=== PATIENT | female | born 1965 | race Two or more races ===

== ENCOUNTER 2024-04-28 16:13 | Emergency (ER) | payer BC, SELFPAY ==
[2024-04-28 16:15] VITALS: PULSE 101; RESP 20; O2SAT 99
[2024-04-28 16:29] VITALS: BP 127/79; PULSE 96; RESP 20; TEMP 37.2; O2SAT 95; BMI 36.7
--- NOTE | 2024-04-28 16:34 | XR_ITS ---
Examination: PA lateral chest 2 views TECHNIQUE: Upright PA lateral chest 2 views Exam date and time: April 28, 2024 1647 hours INDICATIONS: Coughing shortness of breath weakness chest pain beginning April 02, 2024 FINDINGS: Suspicious for early bilateral perihilar basilar pneumonia Normal heart size The osseous structures are intact IMPRESSION: Suspicious for early bilateral perihilar bibasilar pneumonia, recommend short-term follow-up chest imaging
--- NOTE | 2024-04-28 16:34 | PD.EDSOB ---
ED SOB =RME/HPI General Chief Complaint: Shortness of Breath/Dyspnea Stated Complaint: SOB, COUGH, WEAKNESS, CHEST PAIN Time Seen by Provider: 04/28/24 16:29 Arrival date/time: 04/28/24 16:13 58-year-old female who states she has had a respiratory virus for the past 3 weeks has tested negative for COVID and flu reports with complaints of a cough attack that resulted in shortness of breath. Patient states that she is feeling much better the shortness of breath has resolved but she cannot control the coughing. She reports taking [id number] medications with no improvement of symptoms. She denies fever chills chest pain back pain nausea vomiting abdominal pain weakness or fatigue Limitations: no limitations Related Data Previous Rx's ?Medication ?Instructions ?Recorded promethazine 6.25 mg-codeine 10 5 ml PO Q6H PRN cough #118 mL 04/28/24 mg/5 mL syrup Allergies Allergy/AdvReac Type Severity Reaction Status Date / Time Penicillins Allergy Mild Hives Verified 04/28/24 16:19 cephalexin [From Keflex] Allergy Verified 04/28/24 16:19 Review of Systems Constitutional Constitutional: Denies chills and Denies fever(s) Cardiovascular Cardiovascular: Denies chest pain and Reports dyspnea Respiratory Respiratory: Reports cough and Reports dyspnea Gastrointestinal Gastrointestinal: Denies nausea and Denies vomiting Musculoskeletal Musculoskeletal: Denies arthralgias and Denies back pain ED Exam General Limitations: Present no limitations General appearance: Present alert and in no apparent distress Head Head exam: Present atraumatic Eye Eye exam: Present normal appearance, PERRL and EOMI ENT ENT exam: Present normal exam, normal oropharynx and mucous membranes moist Neck Neck exam: Present normal inspection, full ROM and trachea midline Chest Chest inspection: Present normal inspection and symmetric chest wall rise Respiratory Respiratory exam: Present other (Coarse breath sounds noted right anterior upper lung); Absent respiratory distress, wheezes, stridor, accessory muscle use or prolonged expiratory phase Cardiovascular Cardiovascular exam: Present regular rate, normal rhythm and normal heart sounds Abdominal Exam Abdominal exam: Present soft and normal bowel sounds Extremities Exam Extremities exam: Present normal inspection and full ROM Back Exam Back exam: Present normal inspection and full ROM Neurological Exam Neurological exam: Present alert, oriented X3 and CN II-XII intact Psychiatric Psychiatric exam: Present normal affect and normal mood Skin Skin exam: Present warm, dry, intact and normal color Course Course Course Narrative: 58-year-old female reports complaints of an episode of shortness of breath. Upon examination states patient states she is feeling much better lung exam with some mild coarse breath sounds noted left upper right lobe however chest x-ray is negative for infiltrates or opacities. Differential diagnosis includes upper respiratory infection versus lower respiratory infection versus flu versus COVID versus other viral infections. Patient is stable nontoxic-appearing in no respiratory distress oxygen saturations are above 95% she will be discharged home advised to follow-up with primary care provider as needed. She is also advised to return to emergency department if symptoms should worsen Quality Measures none Orders Category Date Time Status XR chest 2V Stat Exams 04/28/24 16:34 Taken Vital Signs Vital signs: Vital Signs Temperature 99.0 F 04/28/24 16:29 Pulse Rate 96 04/28/24 16:29 Respiratory Rate 20 04/28/24 16:29 Blood Pressure 127/79 04/28/24 16:29 Pulse Oximetry (%) 95 04/28/24 16:29 Oxygen Delivery Method Room Air 04/28/24 16:29 Shortness of Breath / Dyspnea Patient data External records reviewed:: None Clinical information provided by:: patient Social determinants that could affect healthcare access:: none Patient has the following chronic illnesses:: none How is presenting disease/condition affected by chronic disease/condition?: no chronic disease Evaluation data The following diagnostics were reviewed and interpreted by me:: radiology exam(s) Lab and/or radiology exams considered but not ordered:: Flu, COVID Interpretation Summary: Chest x-ray negative for infiltrates or opacities Medications / Prescriptions Medications or Prescriptions considered but not ordered:: None Medication administrations:: None Consultations Consultation(s) initiated? (list below): No Diagnosis Shortness of Breath Differential Diagnosis: other (Upper respiratory infection, lower respiratory infection, flu, COVID, RSV, sinusitis) Most likely diagnosis given after review of the tests above:: Viral upper respiratory infection Admission Indicated Admission indicated?: not indicated Admission Request Was there a request for admission?: No Disposition Plan Disposition Plan: Discharge Discharge Attestation Discharge Attestation: The patient and all family members were given an opportunity to ask questions and understood the discharge instructions. Discharge instructions specifically effects, indications for sooner follow up or return to the emergency department, and the expected course of current diagnosis. Patient condition: Stable Discharge Plan Plan Patient Disposition: HOME (Self Care) Prescriptions/Referrals Prescriptions/Med Rec: New promethazine-codeine 6.25-10 mg/5 mL syrup 5 ml PO Q6H PRN (Reason: cough) Qty: 118 0RF Referrals: Per Torre MD [Primary Care Provider] - In 1 week Problem List Clinical Impression: Acute upper respiratory infection Patient/Caregiver Discharge Instructions Discharge Activity: activity as tolerated Education Materials: ED URI, Viral, No Abx (Adult) Additional Instructions: Take medication as directed hydrate well follow with your primary care provider if no improvement in 5 to 7 days. Return to the emergency department if symptoms should worsen Print Language: Bahraini Stand Alone Forms: [place] Award Info., Patient Portal Info Letter
== END 2024-04-28 17:28 | disposition home or self-care (01) ==
PROVIDERS: Emergency Provider Emergency Medicine; PCP Internal Medicine
DX: J06.9 Acute upper respiratory infection, unspecified (principal)
CPT/HCPCS: 71046; 99283

== ENCOUNTER 2024-05-30 16:01 | Emergency (ER) | payer BC, SELFPAY ==
[2024-05-30 16:14] VITALS: BP 147/74; PULSE 106; RESP 18; TEMP 37.9; O2SAT 93; BMI 37.0
--- NOTE | 2024-05-30 16:22 | XR_ITS ---
Examination: PA lateral chest 2 views Technique: Upright PA lateral chest 2 views Exam date and time: May 22, 2024 1623 hrs. Indications: Coughing fever today. Findings: Suspicious for early bilateral perihilar right basilar pneumonia Normal heart size The osseous structures are intact Impression: Early bilateral perihilar right basilar pneumonia
[2024-05-30] MEDS: ALBUTEROL/IPRATROPIUM (Duoneb) RT SOL 3 ML NEBU INH (16:29)
[2024-05-30 16:30] VITALS: PULSE 103; RESP 18; O2SAT 98
--- NOTE | 2024-05-30 16:31 | PD.EDURI ---
Upper Respiratory Inf. RME/HPI General Chief Complaint: Flu Like Symptoms Stated Complaint: Cough X 2 months, chest pain Time Seen by Provider: 05/30/24 17:45 Source: patient Arrival date/time: 05/30/24 16:01 58-year-old female with no known medical history presents to the emergency room with a chief complaint of coughing x 2 months as well as phlegm. Mode of arrival: ambulatory Limitations: no limitations Related Data Previous Rx's ?Medication ?Instructions ?Recorded promethazine-DM 6.25 mg-15 mg/5 mL 5 ml PO Q6H PRN cough #118 mL 04/28/24 oral syrup acetaminophen 325 mg capsule 650 mg (2 x 325 mg) PO QID PRN 05/30/24 fever or pain 7 days #30 caps albuterol sulfate 90 mcg/actuation 2 inh inhalation Q6H PRN shortness 05/30/24 breath activated powder inhaler of breath or wheezing #1 ea benzonatate 100 mg capsule 100 mg PO BID PRN cough #14 caps 05/30/24 Allergies Allergy/AdvReac Type Severity Reaction Status Date / Time Penicillins Allergy Mild Hives Verified 05/30/24 16:06 cephalexin (From Keflex) Allergy Verified 05/30/24 16:06 Review of Systems Review of Systems Systems Reviewed: All systems reviewed, normal except as documented Constitutional Constitutional: Reports system reviewed and no additional complaints, except as documented, Denies fatigue, Denies fever(s), Denies headache(s) and Denies weakness Eyes Eyes: Reports system reviewed and no additional complaints, except as documented, Denies blurry vision and Denies change in vision ENT Ears, Nose, Mouth, and Throat: Reports system reviewed and no additional complaints, except as documented, Denies otalgia, Denies headache(s), Denies nasal congestion, Denies throat swelling and Denies vertigo Cardiovascular Cardiovascular: Reports system reviewed and no additional complaints, except as documented, Denies chest pain, Reports dyspnea and Denies dyspnea on exertion Respiratory Respiratory: Reports system reviewed and no additional complaints, except as documented, Reports chest congestion, Reports cough, Reports dyspnea, Denies dyspnea on exertion and Reports wheezing Gastrointestinal Gastrointestinal: Reports system reviewed and no additional complaints, except as documented, Denies abdominal pain, Denies cramping, Denies nausea and Denies vomiting Genitourinary Genitourinary: Reports system reviewed and no additional complaints, except as documented Musculoskeletal Musculoskeletal: Reports system reviewed and no additional complaints, except as documented and Denies back pain Integumentary/Breasts Skin/Breast: Reports system reviewed and no additional complaints, except as documented and Denies wounds Neurologic Neurologic: Reports system reviewed and no additional complaints, except as documented, Denies confusion, Denies headache(s), Denies lack of coordination, Denies vertigo and Denies weakness Psychiatric Psychiatric: Reports system reviewed and no additional complaints, except as documented, Denies anxiety, Denies confusion, Denies depression, Denies paranoia, Denies suicidal ideation and Denies tactile hallucinations Endocrine Endocrine: Reports system reviewed and no additional complaints, except as documented and Denies fatigue Hematologic/Lymphatic Hematologic/Lymphatic: Reports system reviewed and no additional complaints, except as documented and Denies lymphadenopathy Allergic/Immunologic Allergic/Immunologic: Reports system reviewed and no additional complaints, except as documented, Denies throat swelling, Denies urticaria and Reports wheezing Past Medical History Social History SMOKING STATUS: Never smoker ED Exam General Limitations: Present no limitations General appearance: Present alert and in no apparent distress Head Head exam: Present atraumatic Eye Eye exam: Present normal appearance, PERRL and EOMI ENT ENT exam: Present normal exam, normal oropharynx and mucous membranes moist Neck Neck exam: Present normal inspection, full ROM and trachea midline Chest Chest inspection: Present normal inspection and symmetric chest wall rise Respiratory Respiratory exam: Present normal lung sounds bilaterally and wheezes; Absent respiratory distress, stridor, accessory muscle use or prolonged expiratory phase Expanded Respiratory Exam Location: Left: wheezes, Right: wheezes and Lower: wheezes Cardiovascular Cardiovascular exam: Present regular rate, normal rhythm and normal heart sounds Abdominal Exam Abdominal exam: Present soft and normal bowel sounds Extremities Exam Extremities exam: Present normal inspection and full ROM Back Exam Back exam: Present normal inspection and full ROM Neurological Exam Neurological exam: Present alert, oriented X3 and CN II-XII intact Psychiatric Psychiatric exam: Present normal affect and normal mood Skin Skin exam: Present warm, dry, intact and normal color Course Quality Measures none Orders Category Date Time Status Bedside COVID-19 Antigen Test NOW Care 05/30/24 16:22 Completed Bedside Influenza A&B Antigen Test NOW Care 05/30/24 16:22 Completed XR chest 2V Stat Exams 05/30/24 16:22 Completed Cocci Serology IgM with reflex to IgG [Cocci Serology, Lab 05/30/24 17:12 Results Unk History] Stat Albuterol/Ipratr Rt Chrystal [Duoneb Rt Chrystal] Med 05/30/24 16:19 Discontinued 3 ml INH X1 ONE Dexamethasone Inj [Decadron Inj] Med 05/30/24 16:19 Discontinued 10 mg PO X1 ONE Vital Signs Vital signs: Vital Signs Temperature 100.3 F 05/30/24 16:14 Pulse Rate 106 H 05/30/24 16:14 Respiratory Rate 18 05/30/24 16:14 Blood Pressure 147/74 H 05/30/24 16:14 Pulse Oximetry (%) 93 L 05/30/24 16:14 Oxygen Delivery Method Room Air 05/30/24 16:14 O2 saturation 98% on room air Upper Respiratory Infection MDM Narrative MDM Narrative:: 58-year-old female with no known medical history presents to the emergency room with a chief complaint of coughing x 2 months as well as phlegm. Patient was febrile at 100.3. Tachycardic at 106, and O2 saturation was 93% on room air Patient had bilateral lower lobe wheezing with auscultation. Patient was given steroids and a breathing treatment and had significant improvement to her symptoms. O2 saturation was 98% on room air Patient tested positive for influenza A Patient was discharged and educated to follow-up with her primary care provider and return to the emergency room for any evidence of worsening signs or symptoms Patient data External records reviewed:: [facility] previous records Clinical information provided by:: patient Social determinants that could affect healthcare access:: none Patient has the following chronic illnesses:: No chronic illness How is presenting disease/condition affected by chronic disease/condition?: no chronic disease Evaluation data The following diagnostics were reviewed and interpreted by me:: lab results and radiology exam(s) Lab and/or radiology exams considered but not ordered:: Labs and radiology exams considered and ordered Interpretation Summary: N/A Medications / Prescriptions Medications or Prescriptions considered but not ordered:: Medication given Medication administrations:: Medication Administration History Discontinued Medications Albuterol/Ipratropium (Albuterol/Ipratropium (Duoneb) Rt Chrystal 3 Ml Nebu) 3 ml INH X1 ONE Stop: 05/30/24 16:20 Last Admin: 05/30/24 16:29 Dose: 3 ml Documented By: BLESSING Dexamethasone Sodium Phosphate (Dexamethasone Sod Phos Inj 10 Mg/Ml Vial) 10 mg PO X1 ONE Stop: 05/30/24 16:20 Last Admin: 05/30/24 16:32 Dose: 10 mg Documented By: [facility] Comments: ordered po no scanner available Medication given Consultations Consultation(s) initiated? (list below): No Diagnosis Upper Respiratory Differential Diagnosis: upper respiratory infection, otitis media, sinusitis, viral infection, bronchitis, influenza and pharyngitis Most likely diagnosis given after review of the tests above:: Influenza A Admission Indicated Admission indicated?: not indicated Admission Request Was there a request for admission?: No Disposition Plan Disposition Plan: Discharge Discharge Attestation Discharge Attestation: The patient and all family members were given an opportunity to ask questions and understood the discharge instructions. Discharge instructions specifically effects, indications for sooner follow up or return to the emergency department, and the expected course of current diagnosis. Patient condition: Stable Discharge Plan Plan Patient Disposition: HOME (Self Care) Disposition Comment: Stable Prescriptions/Referrals Prescriptions/Med Rec: New benzonatate 100 mg capsule 100 mg PO BID PRN (Reason: cough) Qty: 14 0RF acetaminophen 325 mg capsule 650 mg PO QID PRN (Reason: fever or pain) 7 Days Qty: 30 0RF albuterol sulfate 90 mcg/actuation aerosol powdr breath activated 2 inh inhalation Q6H PRN (Reason: shortness of breath or wheezing) Qty: 1 0RF No Action promethazine-DM 6.25-15 mg/5 mL syrup 5 ml PO Q6H PRN (Reason: cough) Qty: 118 0RF Problem List Clinical Impression: Influenza A Patient/Caregiver Discharge Instructions Education Materials: ED Influenza (Adult) Additional Instructions: Please follow-up with your primary care provider in the next 24 to 48 hours. You tested positive for influenza. The treatment for this is symptom management. Please continue to take Tylenol and ibuprofen for fever management. Please increase your oral fluid intake. 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 Ny
[2024-05-30] MEDS: DEXAMETHASONE SOD PHOS INJ 10 MG/ML VIAL PO (16:32)
[2024-05-31 15:06] LABS: Cocci Serology, IgM Negative (Negative)
[2024-06-05 13:10] LABS: Cocci Serology, IgG Negative (Negative)
== END 2024-05-30 18:28 | disposition home or self-care (01) ==
LOC: SERX 18:31
PROVIDERS: Nurse Practitioner Family; Emergency Provider Emergency Medicine
DX: J10.1 Influenza due to other identified influenza virus with other respiratory manifestations (principal)
CPT/HCPCS: 36415; 71046; 86331; 86635; 87400; 87811; 94640; 99283; A9270; J1100